=== PATIENT | female | born 1940 | race Caucasian/White ===

== ENCOUNTER 2018-08-15 09:30 | Inpatient (IN) | payer MEDICARE, BC ==
[2018-08-08 14:42] LABS: BASOPHILS % (AUTO) 0.7 % (0-1); EOSINOPHILS # (AUTO) 0.1 X10'3 (0-0.9); EOSINOPHILS % (AUTO) 0.9 % (0-6); LYMPHOCYTES # (AUTO) 1.3 X10'3 (1.1-4.8); LYMPHOCYTES % (AUTO) 22.1 % (21-51); MEAN CORPUSCULAR HEMOGLOBIN 30.6 PG (27.0-31.0); MEAN CORPUSCULAR HGB CONC 33.5 % (33.0-36.5); MEAN CORPUSCULAR VOLUME 91.2 FL (78-98); MEAN PLATELET VOLUME 7.7 FL (7.4-10.4); MONOCYTES # (AUTO) 0.5 X10'3 (0-0.9); MONOCYTES % (AUTO) 8.1 % (2-12); NEUTROPHILS % (AUTO) 68.2 % (42-75); PRE OP HEMATOCRIT 35.8 % (35.0-45.0); PRE OP PLATELET COUNT 222 X10'3 (140-440); RED BLOOD COUNT 3.92 X10'6 (4.20-5.60); RED CELL DISTRIBUTION WIDTH 14.1 % (11.5-14.5)
[2018-08-08 15:01] LABS: ALBUMIN 3.5 G/DL (3.4-5.0); ALKALINE PHOSPHATASE 84 IU/L (46-116); BLOOD UREA NITROGEN 15 MG/DL (7-18); BUN/CREATININE RATIO 16.9 (6.6-38.0); CALCIUM 9.1 MG/DL (8.5-10.1); CHLORIDE 103 MMOL/L (99-107); CREATININE 0.89 MG/DL (0.40-0.90); PRE OP ALT 32 U/L (30-65); PRE OP ANION GAP 5 (8-16); PRE OP AST 14 U/L (10-37); PRE OP BILIRUB, TOTAL 0.3 MG/DL (0.0-1.0); PRE OP GLUCOSE 102 MG/DL (70-104); PRE OP POTASSIUM 3.5 MMOL/L (3.4-5.1); PRE OP SODIUM 138 MMOL/L (135-145); TOTAL CARBON DIOXIDE 30.4 MMOL/L (24-32); TOTAL PROTEIN 6.9 G/DL (6.4-8.2); eGFR 61 ML/MIN
[~2018-08-15] VITALS: Ht 157.5 cm; Wt 66.4 kg
[2018-08-15] VITALS (20 sets, daily range): BP systolic 108–146; BP diastolic 69–94
[~2018-08-15 09:30] MED LIST: ALEN70TA13 PO; ANAS1TAB PO; CHOL400T14 PO; Cefazolin 2GM/50ML dext iso,osmotic IVPB IV ONE; LOSA100T15 PO; MAGN500C16 PO; OMEP40CA37 PO; OSC500T PO; VANCOMYCIN INJ 1000 MG in NORMAL SALINE 250ml IV.SOLN IV ONE; famotidine 20mg tablet PO ONE; ringers solution, lacted 1,000 ML IV SCH
[2018-08-15] MEDS ORDERED: LIDOcaine 1% (10mg/ml) 2ml vial ONE ×2 (10:51→12:45)
[2018-08-15] MEDS ORDERED: ROPIVAcaine 0.5% (5mg/ml) 30ml vial ONE ×3 (12:05→12:42)
[2018-08-15] MEDS ORDERED: vancomycin 1,000mg inj ONE (12:07)
[2018-08-15] MEDS ORDERED: sevoflurane 250ml liquid IH ONE (12:35)
[2018-08-15] MEDS ORDERED: fentaNYL/PF 50MCG/1 ML 2ML syringe ONE (12:36)
[2018-08-15] MEDS ORDERED: propofol inj 20 ML IV ONE (12:36)
[2018-08-15] MEDS ORDERED: LIDOcaine 2% (20mg/ml) 5ml vial ONE (12:36)
[2018-08-15] MEDS ORDERED: midazolam 2 mg/2 ml injection ONE (12:37)
[2018-08-15] MEDS ORDERED: cloNIDine hcl/PF 100mcg/ml inj ONE (12:42)
[2018-08-15] MEDS ORDERED: ketorolac trometh. 30mg/ml inj. ONE (12:43)
[2018-08-15] MEDS ORDERED: NORMAL SALINE IV ONE ×5 (13:00→18:00)
[2018-08-15] MEDS ORDERED: TRANEXAMIC ACID IV ONE ×5 (13:00→18:00)
[2018-08-15] MEDS ORDERED: phenylephrine 10mg/ml inj. ONE (13:23)
[2018-08-15] MEDS ORDERED: ringers solution, lacted 1,000 ML IV SCH (14:06)
[2018-08-15] MEDS ORDERED: enalaprilat dihydrate 2.5mg/2ml vial IV PRN (14:10)
[2018-08-15] MEDS ORDERED: ondansetron/PF 4mg/2ml inj IV PRN ×2 (14:10→15:15)
[2018-08-15] MEDS ORDERED: fentaNYL/PF 50MCG/1 ML 2ML syringe IV PRN ×2 (14:10)
[2018-08-15] MEDS ORDERED: morphine 4 MG/ML inj SYRINge IV PRN ×2 (14:10)
[2018-08-15] MEDS ORDERED: hydrALAZINE 20mg/ml inj. IV PRN (14:10)
[2018-08-15] MEDS ORDERED: bisacodyl 10mg suppository rectal RC PRN (15:15)
[2018-08-15] MEDS ORDERED: HYDROmorphone 1 mg/ml syringe IV PRN ×2 (15:15)
[2018-08-15] MEDS ORDERED: diphenhydrAMINE 25mg capsule PO PRN ×2 (15:15)
[2018-08-15] MEDS ORDERED: acetaminophen 325mg tablet PO PRN (15:15)
[2018-08-15] MEDS ORDERED: oxyCODONE IR 5mg (immed. release) tablet PO PRN ×2 (15:15)
[2018-08-15] MEDS ORDERED: non-formulary drug (Alendronate Sodium 70 MG) PO SCH (15:15)
[2018-08-15] MEDS ORDERED: magnesium hydroxide 30ml (MOM) UD suspension PO PRN (15:15)
[2018-08-15] MEDS ORDERED: proCHLORperazine 10 MG/2 ml inj IV ONE (15:45)
[2018-08-15] MEDS: ceFAZolin 1GM/D5W- ADD-VANTAGE 50 ML IV SCH ×2 (18:44→23:22)
[2018-08-15] MEDS ORDERED: vancomycin/NS 1 GM ADD-VANTAGE 250 ML IV SCH (20:00)
[2018-08-15] MEDS: ketorolac tromethamine 15mg/ml inj. IV SCH ×2 (20:44→23:22)
[2018-08-15] MEDS: gabapentin 300mg capsule PO SCH (20:45)
[2018-08-15] MEDS: acetaminophen 325mg tablet PO SCH (20:46)
[2018-08-15] MEDS ORDERED: losartan 50mg tablet PO SCH (21:00)
[2018-08-15] MEDS ORDERED: sennosides 8.6mg tablet PO SCH (21:00)
[2018-08-15] MEDS ORDERED: calcium carbonate 500mg tablet PO SCH (21:00)
[2018-08-15] MEDS ORDERED: magnesium oxide 400mg tablet PO SCH (21:00)
[2018-08-15] MEDS ORDERED: anastrozole 1 MG tablet PO SCH (21:00)
[2018-08-15] MEDS ORDERED: cholecalciferol (vitamin D) 400 unit tablet PO SCH (21:00)
[2018-08-15] MEDS: potassium cl 20mEq in 1/2 NS 1,000 ML IV SCH ×2 (21:03→23:15)
[2018-08-16 01:58] VITALS: BP 100/52
[2018-08-16] MEDS: acetaminophen 325mg tablet PO SCH ×2 (02:00→09:01)
[2018-08-16 05:56] LABS: BASOPHILS % (AUTO) 0 % (0-1); EOSINOPHILS % (AUTO) 0.7 % (0-6); HEMATOCRIT 31.9 % (35.0-45.0); HEMOGLOBIN 10.8 g/dl (12.0-16.0); LYMPHOCYTES # (AUTO) 0.7 X10'3 (1.1-4.8); LYMPHOCYTES % (AUTO) 10.3 % (21-51); MEAN CORPUSCULAR HEMOGLOBIN 30.7 PG (27.0-31.0); MEAN CORPUSCULAR HGB CONC 33.9 % (33.0-36.5); MEAN CORPUSCULAR VOLUME 90.4 FL (78-98); MEAN PLATELET VOLUME 7.8 FL (7.4-10.4); MONOCYTES # (AUTO) 0.3 X10'3 (0-0.9); MONOCYTES % (AUTO) 4.6 % (2-12); NEUTROPHILS # (AUTO) 5.4 X10'3 (1.8-7.7); NEUTROPHILS % (AUTO) 84.4 % (42-75); PLATELET COUNT 185 X10'3 (140-440); RED BLOOD COUNT 3.52 X10'6 (4.20-5.60); WHITE BLOOD COUNT 6.4 X10'3 (4.5-11.0)
[2018-08-16 06:00] VITALS: BP 121/58
[2018-08-16 06:15] LABS: ANION GAP 9 (8-16); CHLORIDE 103 MMOL/L (99-107); POTASSIUM 3.9 MMOL/L (3.5-5.1); SODIUM 136 MMOL/L (135-145); TOTAL CARBON DIOXIDE 24.2 MMOL/L (24-32)
[2018-08-16] MEDS ORDERED: ASPI-1 PO (07:00)
[2018-08-16] MEDS: potassium cl 20mEq in 1/2 NS 1,000 ML IV SCH (07:15)
[2018-08-16] MEDS ORDERED: pantoprazole 40mg Tablet.DR PO SCH (07:30)
[2018-08-16] MEDS: ketorolac tromethamine 15mg/ml inj. IV SCH (08:00)
[2018-08-16] MEDS ORDERED: aspirin 325mg tablet PO SCH (08:30)
[2018-08-16] MEDS: gabapentin 300mg capsule PO SCH (09:01)
[2018-08-16 10:00] VITALS: BP 106/58
[2018-08-16] MEDS ORDERED: celeCOXIB 100mg capsule PO SCH (20:00)
[2018-08-17] MEDS ORDERED: acetaminophen 325mg tablet PO PRN (15:15)
== END 2018-08-16 14:45 | disposition home or self-care (01) | DRG 483 ==
LOC: PAS IN 09:57 → EDSTATUS 10:30 → ORTHO 4S 17:00
PROVIDERS: ADMIT Orthopaedic Surgery; ATTEND Orthopaedic Surgery
PROC: 0LS40ZZ Reposition Left Upper Arm Tendon, Open Approach (ICD-10-PCS; 2018-08-15)
PROC: 3E0T3BZ Introduction of Anesthetic Agent into Peripheral Nerves and Plexi, Percutaneous Approach (ICD-10-PCS; 2018-08-15)
PROC: 0RRK00Z Replacement of Left Shoulder Joint with Reverse Ball and Socket Synthetic Substitute, Open Approach (ICD-10-PCS; principal; 2018-08-15 13:06)
DX: M19.012 Primary osteoarthritis, left shoulder (principal); D62 Acute posthemorrhagic anemia; M75.02 Adhesive capsulitis of left shoulder; I10 Essential (primary) hypertension; M75.22 Bicipital tendinitis, left shoulder; M75.42 Impingement syndrome of left shoulder; M25.712 Osteophyte, left shoulder; K21.9 Gastro-esophageal reflux disease without esophagitis; M75.122 Complete rotator cuff tear or rupture of left shoulder, not specified as traumatic; M81.0 Age-related osteoporosis without current pathological fracture; Z85.3 Personal history of malignant neoplasm of breast; Z79.82 Long term (current) use of aspirin; Z79.899 Other long term (current) drug therapy
CPT/HCPCS: 36415; 80051; 80053; 85025; 87070; 88305; 97110; 97116; 97161; A4565; A6449; A7000; J0690; J0735; J0780; J1885; J2001; J2250; J2370; J2704; J2795; J3010; J3370; J3490; J7030; J7040; J7120

== ENCOUNTER 2023-01-26 11:25 | Emergency (ER) | payer MEDICARE, BC ==
[~2023-01-26] VITALS: Ht 157.5 cm; Wt 67.3 kg
[~2023-01-26 11:25] MED LIST changes: -ALEN70TA13 PO; +ALEN70TA80 PO; +ASPI-1 PO; -Cefazolin 2GM/50ML dext iso,osmotic IVPB IV ONE; -LOSA100T15 PO; +LOSA100T57 PO; -MAGN500C16 PO; +MAGN500C4 PO; +OMEP40CA21 PO; -OMEP40CA37 PO; -VANCOMYCIN INJ 1000 MG in NORMAL SALINE 250ml IV.SOLN IV ONE; -famotidine 20mg tablet PO ONE; -ringers solution, lacted 1,000 ML IV SCH
[2023-01-26 15:04] VITALS: BP 153/98
== END 2023-01-26 15:05 | disposition home or self-care (01) ==
LOC: ER 11:26
DX: S86.812A Strain of other muscle(s) and tendon(s) at lower leg level, left leg, initial encounter (principal); Z98.890 Other specified postprocedural states; Z79.82 Long term (current) use of aspirin; Z79.899 Other long term (current) drug therapy; X58.XXXA Exposure to other specified factors, initial encounter; Y93.89 Activity, other specified; Y92.89 Other specified places as the place of occurrence of the external cause; Y99.8 Other external cause status
CPT/HCPCS: 93971; 99284

== ENCOUNTER 2025-04-15 10:47 | Emergency (ER) | payer MEDICARE, BC ==
[~2025-04-15] VITALS: Ht 157.5 cm; Wt 70.4 kg
[~2025-04-15 10:47] MED LIST changes: -LOSA100T57 PO; +LOSA100T58 PO
[2025-04-15 10:48] VITALS: TEMP 97.7
[2025-04-15] MEDS: oxyCODONE IR 5mg (immed. release) tablet PO ONE (11:07)
[2025-04-15] MEDS: fentaNYL/PF 50MCG/1 ML 2ML syringe IV ONE (11:28)
--- NOTE | 2025-04-15 12:01 | RADIOLOGY REPORT ---
DI HUMERUS (2VWS), INDICATION: fall with deformity TECHNICAL DATA: Frontal and lateral views were obtained of the left humerus. COMPARISON: None FINDINGS: There is a reverse shoulder prosthesis. There is acute spiral periprosthetic fracture at the level o f the humeral stem. Glenoid and humeral component remain aligned. Left axillary clips noted. Distal c lavicular fracture. IMPRESSION: 1. Acute periprosthetic mid shaft humeral fracture. 2. Age-indeterminate distal clavicular fracture.
[2025-04-15 13:13] VITALS: BP 150/77; PULSE 90; O2SAT 95
--- NOTE | 2025-04-15 14:30 | Physician Documentation ---
History of Present Illness ~ Chief Complaint: Mechanical Fall Stated Complaint: FALL Time Seen by MD: 10:53 Mode of Arrival: EMS HPI This is a very pleasant 84-year-old female presents for evaluation of potential injuries sustained mechanical ground level fall. She had fallen onto her left upper extremity and reports an immediate onset of sharp nonradiating pain and deformity in the left upper extremity. Worse with any range of motion. Palliated with the position of comfort. Pain is moderate to severe in its intensity. Also had fallen in the right knee. Denies head strike, denies loss of consciousness, denies blood thinners. Tetanus within 5 Years?: No Medication Reconciliation Allergies: Coded Allergies: No Known Allergies (Unverified , 07/16/16) Scheduled Alendronate Sodium (Alendronate Sodium), 70 MG PO TUESDAY, (Reported) Anastrozole (Anastrozole), 1 MG PO QPM, (Reported) Aspirin (Aspirin), 325 MG PO Q24H@0830 Calcium Carbonate* (Oscal*), 1 TAB PO QPM, (Reported) Cholecalciferol (Vitamin D3), 0.5 TAB PO QPM, (Reported) Losartan Potassium (Losartan Potassium), 100 MG PO QPM, (Reported) Magnesium Oxide (Magnesium), 1 CAP PO QPM, (Reported) Omeprazole (Prilosec), 40 MG PO QPM, (Reported) Past Medical History Past Medical History: *CANCER* Past Surgical History: other Smoking Status: Never smoker Drug Use: none Lives with: Family Lives In: Home Occupation: retired Review of Systems ROS 10 point review of systems was performed and unless noted above in HPI is negative for acute process/complaint. Physical Exam Vital Signs: Temperature: 97.7, Source: Oral, Heart Rate: 90, Respiratory Rate: 15, BP: 150/77, Pulse Oximetry: 95, Weight: 70.400 Physical Exam GENERAL: Awake, alert, oriented, GCS 15, no apparent distress, non-toxic appearing, answers questions, follows commands appropriately. HEENT: Atraumatic, normocephalic, pupils equal, extraocular muscles intact, sclerae anicteric, mucus membranes moist, oropharynx is clear, no stridor. NECK: supple, full active range of motion, trachea midline, no thyromegaly, no lymphadenopathy, no JVD. CARDIOVASCULAR: regular rate/rhythm, no murmurs/gallops/rubs, Pulses are 2+ in all extremities and symmetric. Capillary refill less than 2 seconds. PULMONARY: Nonlabored, good air movement ,no respiratory distress, speaking in full sentences, clear to auscultation bilaterally, no wheezing, no ronchi, no rales, no accessory muscle use. GASTROINTESTINAL: Soft, non-tender, non-distended, normal active bowel sounds, no organomegaly, no pulsatile masses, no CVA tenderness. NEUROLOGIC: Lucid with normal mental status. Normal facial symmetry. Moves all extremities symmetrically and with purpose. No truncal ataxia. Speech is fluid without evidence of dysarthria or aphasia, no focal deficits appreciated. MUSCULOSKELETAL: There is full range of motion of all extremities. There is no joint pain or joint swelling or joint erythema. There is no muscle pain or tenderness or swelling. EXTREMITIES: warm, well-perfused, no cyanosis, no clubbing, no edema, no acute deformities. Skin: warm, dry, no rashes or lesions, no jaundice, no petechiae orpurpura. No ecchymosis. PSYCHIATRIC: Normal affect, normal insight, normal concentration. Focused exam: Allergy and got more the left upper extremity concerning for humerus fracture. Neurovascularly intact distally. Cap refill less than 2 seconds. Range of motion limited by pain and not tested. Progress Results/Orders Results/Orders Orders - ARIAN BHATT DO Humerus (2vws) (04/15/25 11:47) Md Tanvir Aguilar (04/15/25 ) Completed Orders - ARIAN BHATT DO Humerus (2vws) (04/15/25 11:47) Oxycodone Immed Release Tablet (Oxy Ir T (04/15/25 10:55) Fentanyl/Pf (Fentanyl 0.05 Mg/Ml Syringe (04/15/25 11:05) Medications Received in ER Medications (Trade) Dose Ordered Sig/Patience Route PRN Reason Start Time Stop Time Status Last Admin Dose Admin (OXY IR tablet) 5 mg ONCE ONCE PO 04/15/25 10:55 04/15/25 10:56 DC 04/15/25 11:07 5 MG (fentaNYL 0.05 MG/ML syringe) 50 mcg ONCE ONCE IV 04/15/25 11:05 04/15/25 11:06 DC 04/15/25 11:28 50 MCG Vital Signs 04/15/25 04/15/25 04/15/25 04/15/25 10:48 10:58 10:59 11:07 Temp 97.7 Pulse 90 87 Resp 15 15 15 15 B/P (MAP) 175/96 173/110 (131) Pulse Ox 98 99 04/15/25 04/15/25 04/15/25 11:28 12:15 13:13 Pulse 76 90 Resp 15 15 15 B/P (MAP) 166/81 (109) 150/77 (101) Pulse Ox 99 95 Medical Decision Making Findings Facility Status: ED Holds, RME process The plan was discussed with the patient, who demonstrates clear understanding of the plan and is in agreement with the plan unless otherwise noted in the chart. All questions have been answered, all concerns were addressed unless otherwise documented. I was available throughout their ED stay for frequent reassessment and questions. Differential Diagnoses (considered and possible or likely): [Ground level fall, acute traumatic pain, left humeral fracture, dislocation, contusion, right knee fracture versus dislocation versus contusion] ??Differential Diagnoses (considered and unlikely, not requiring evaluation currently): [] No evidence of neurovascular injury MDM Data Please see HPI for the following: Independent Historians and external Records Review. Historian: [Patient] Independent Historians: ?[EMS] Medication Management: [Reviewed medication list] Social History and determinants: [Reviewed] Please see the body of the note for the following: Any independent interpretations of ECG, imaging studies. All vitals signs/haemodynamics, ordered tests were independently reviewed and interpreted by myself. Nursing triage complaint and vitals reviewed, additional nursing notes were reviewed as available and I agree unless otherwise noted or documented in contradiction in the chart Vital Signs: Independently reviewed Labs: Independently interpreted Imaging: Independently interpreted Old Medical Records: Independently reviewed, see HPI for relevant summary and information Pulse Oximetry: [100%] interpreted as [normal on room air] by me Additionally notably showing: [Hemodynamically stable. X-ray shows periprost hetic fracture.] Tests considered but not ordered include: [Hematologic workup has been considered but does not appear to be necessary given mechanical nature of the injury.] Social Determinants of Health Impact: Patient was evaluated in [facility] [place] due to below par ratio of patient to medical providers. [] Comorbid Conditions Impacting Present Evaluation and Care/Treatment: [] Management Discussions with other Healthcare Providers: [Dr. Madera, orthopedic surgeon who recommends outpatient follow-up with her operating surgeon] Treatment and Disposition Medication Management (Given or considered): [Pain management]. See EMR for details Consideration for Hospitalization/Escalation/Deescalation of Care: Admission for observation has been considered, [however the patient is able to tolerate p.o., their symptoms are controlled, they are able to rely on oral medications, and their chief complaint/diagnosis can be managed on outpatient basis.] ?ED Course:?[] ?Shared decision making:?[No clinical deterioration] Patient is hemodynamically stable for discharge home with follow with their primary care provider. [ ] Specific and cautious return precautions provided and discussed with full understanding. Any incidental findings were also discussed and follow up recommendations given. [] All questions answered. Patient/family were able to verbalize back return precautions. Patient/family agree to plan. Copies of imaging and laboratory studies were provided. Code status:?FULL Please see the full Electronic Medical Record for full details of nursing documentation, medications list, other records of complete past medical history and conditions, vital signs, laboratory studies, and any radiologic study interpretations by radiologists. Portions of this note were completed using [employer] dictation software and as a result there may exist minor errors in spelling. I have reviewed elements of past family and social history and agree as included in note. Departure Disposition: 01 HOME / SELF CARE / HOMELESS Impression: Primary Impression: Closed left humeral fracture Condition: Improved Discharge Instructions: Humerus Fracture Treated With Immobilization Additional Instructions: Follow-up with the orthopedic surgeon of your choice, you may follow-up with the surgeon that did your prosthesis, alternatively you can follow-up with Dr. Madera, orthopedic surgeon on-call today Referrals: NO PRIMARY CARE PROVIDER (PCP) Prescriptions ONDANSETRON ODT 4mg tablet (ONDANSETRON ODT) 4 Mg Tab.rapdis 1 TAB PO Q6H PRN PRN for nausea/vomiting for 4 Days, #16 TAB 0 Refills Prov: ARIAN BHATT DO 04/15/25 Oxycodone HCl/Acetaminophen (Percocet 5-325 mg Tablet) 5 Mg-325 Mg Tablet 1 TAB PO QID PRN PRN for pain for 5 Days, #20 TAB 0 Refills Prov: ARIAN BHATT DO 04/15/25 Education Educated: Patient Educated regarding: diagnosis, treatment, prognosis, need for follow up Signature Scribe Signature: No scribe Attestation: This note accurately reflects clinical decisions, work performed by myself, DO NOVA Roche NICHOLAS M DO April 15, 2025 14:30
[2025-04-15] MEDS ORDERED: OXYC-145 PO (14:33)
[2025-04-15] MEDS ORDERED: ONDA-243 PO (14:33)
[2025-04-15 15:08] VITALS: RESP 16
[2025-04-15] MEDS: oxyCODONE/APAP 5-325mg tablet PO ONE (15:08)
== END 2025-04-15 16:13 | disposition home or self-care (01) ==
LOC: ER 10:47
DX: S42.302A Unspecified fracture of shaft of humerus, left arm, initial encounter for closed fracture (principal); Z79.82 Long term (current) use of aspirin; W19.XXXA Unspecified fall, initial encounter; Y93.89 Activity, other specified; Y92.89 Other specified places as the place of occurrence of the external cause; Y99.8 Other external cause status
CPT/HCPCS: 73060; 96374; 99283; A4565; J3010

== ENCOUNTER 2025-05-12 00:19 | Emergency (ER) | payer MEDICARE, BC ==
[~2025-05-12] VITALS: Ht 157.5 cm; Wt 76.0 kg
[~2025-05-12 00:19] MED LIST changes: +ONDA-243 PO; +OXYC-145 PO
[2025-05-12 00:23] VITALS: TEMP 97.4
--- NOTE | 2025-05-12 01:25 | Physician Documentation ---
History of Present Illness ~ Chief Complaint: Extremity Swelling Stated Complaint: SWOLLEN FOOT POST ОЛЕГ Time Seen by MD: 01:15 OK to notify your PCP?: Yes Source: patient, family Mode of Arrival: POV Exam Limitations: no limitations HPI Chief Complaint: Left lower extremity swelling Caveat: None Independent Historians: Daughter History of Present Illness: Patient is a 84-year-old woman that had recent open reduction internal fixation of her left humerus after a recent fall and recurrent fracture. This evening the patient noticed after taking off her socks that she had a swelling of the left foot and calf. Patient denies any pain in the foot or calf. No fever. No redness to the leg. Patient denies any other associated symptoms. No chest pain or shortness for breath. No alleviating or exacerbating factors. Review of systems: All systems were reviewed and are negative except for what is indicated in the history of present illness. Past Medical History: Mild hypertension, breast cancer Past Surgical History: Left shoulder prosthesis 2018, bilateral mastectomy Social History: No tobacco use, no alcohol use, no drug use Medications: Reviewed as documented Nursing Notes Allergies: Reviewed as documented in Nursing Notes Mynor allan 5 years: No Medication Reconciliation Allergies: Coded Allergies: No Known Allergies (Unverified , 07/16/16) Scheduled Alendronate Sodium (Alendronate Sodium), 70 MG PO TUESDAY, (Reported) Anastrozole (Anastrozole), 1 MG PO QPM, (Reported) Aspirin (Aspirin), 325 MG PO Q24H@0830 Calcium Carbonate* (Oscal*), 1 TAB PO QPM, (Reported) Cholecalciferol (Vitamin D3), 0.5 TAB PO QPM, (Reported) Losartan Potassium (Losartan Potassium), 100 MG PO QPM, (Reported) Magnesium Oxide (Magnesium), 1 CAP PO QPM, (Reported) Omeprazole (Prilosec), 40 MG PO QPM, (Reported) Scheduled PRN ONDANSETRON ODT 4mg tablet (Ondansetron Odt), 1 TAB PO Q6H PRN PRN for nausea/vomiting Oxycodone HCl/Acetaminophen (Percocet 5-325 mg Tablet), 1 TAB PO QID PRN PRN for pain Past Medical History Past Medical History: *CANCER* Past Surgical History: other Drug Use: none Lives with: Family Lives In: Home Occupation: retired Review of Systems All Other Systems at this time: Reviewed and Negative ROS Patient denies any other acute symptoms other than above. All other systems are negative Physical Exam Vital Signs: RN Vital Signs have been reviewed: Yes, Temperature: 97.4, Source: Temporal, Heart Rate: 93, Respiratory Rate: 20, BP: 166/94, Pulse Oximetry: 98, Weight: 76.050 Oxygen Flow Rate: 0 Pulse Oximetry Reflects: adequate oxygenation Physical Exam General Appearance: No distress HEENT: Normal OP, moist oral mucosa, PERRL, EOMI Neck: supple, normal ROM, trachea midline Pulmonary: No respiratory distress, CTA, BS equal Cardiac: RRR, no murmur, rub or gallop, GI: nondistended, soft, nontender, normal bowel sounds, no guarding, no rebound Extremities: Left upper extremity is in a sling in his diffusely swollen, surgical bandage over the left lateral arm. 2+ pitting lower extremity edema in the foot some mild nonpitting edema in the left leg compared to the right. No calf tenderness bilaterally, 2+ DP pulses bilaterally, trace lower extremity edema in the right foot. Skin: intact, dry, warm, no rashes Neuro: AAOx3, speech is clear, no focal motor weakness Psych: normal affect, good eye contact, no apparent hallucination, normal speech Progress Results/Orders Results/Orders Orders - RENEA JOSEPH MD Cbc/Diff (05/12/25 01:19) CMP (05/12/25 01:19) Vl Venous (05/12/25 01:19) Completed Orders - RENEA JOSEPH MD Vl Venous (05/12/25 01:19) Vital Signs 05/12/25 05/12/25 00:23 02:52 Temp 97.4 Pulse 93 Resp 20 16 B/P (MAP) 166/94 Pulse Ox 98 O2 Flow Rate 0 Medical Decision Making Findings Differential diagnosis includes but is not limited to: DVT, lower extremity edema, hepatic failure, renal failure Left lower extremity Doppler, indication: Left lower extremity swelling post surgery Impression: Preliminary report no evidence of DVT Laboratory data independent interpretation: PATIENT IS REFUSING BLOOD WORK. CBC: CMP: Emergency department course/medical decision-making: Patient has what appears to be peripheral edema. There was no vascular Doppler evidence for DVT. Patient is refusing blood work. However I do not suspect acute renal or hepatic failure. No evidence for infection. Patient is instructed to elevate her legs as much as possible and to follow up with her primary care doctor or manager of application development if the swelling persists. Test results and treatment plan reviewed with the patient and family. Patient is stable for discharge. Departure Time of Disposition: 02:56 Disposition: 01 HOME / SELF CARE / HOMELESS Impression: Primary Impression: Edema of lower extremity Condition: Stable Discharge Instructions: Peripheral Edema Additional Instructions: FOLLOW UP WITH YOUR PRIMARY CARE DOCTOR THIS WEEK IF SWELLING PERSISTS. ELEVATE YOUR LEGS MUCH POSSIBLE. IF EDEMA/SWELLING PERSIST SHE MAY NEED TO BE STARTED ON A DIURETIC. Education Educated: Patient Educated regarding: diagnosis, treatment, need for follow up Signature Scribe Signature: No scribe Attestation: No scribe RENEA JOSEPH MD May 12, 2025 01:25
[2025-05-12 03:05] VITALS: BP 160/89; PULSE 90; RESP 18; O2SAT 99
--- NOTE | 2025-05-12 03:07 | VASCULAR REPORT ---
Left lower extremity venous duplex Clinical History: Left lower extremity swelling Comparison: None Technique: Duplex Doppler evaluation of the deep venous system of the left lower extremity from the common femor al vein to the popliteal vein including color Doppler and spectral/pulsed waveform analysis was perfo rmed. Findings: The common femoral vein demonstrates appropriate compressibility and waveform variability. There is compressibility/patency of the great saphenous vein at the proximal thigh. The femoral vein demonstrates appropriate compressibility and waveform variability. The deep femoral vein demonstrates appropriate compressibility and waveform variability. The popliteal vein demonstrates appropriate compressibility and waveform variability. There is normal compressibility at the tibioperoneal trunk. Impression: 1. No left femoropopliteal venous thrombosis. 2. Contralateral common femoral vein is patent.
== END 2025-05-12 03:07 | disposition home or self-care (01) ==
LOC: ER 00:20
DX: R60.0 Localized edema (principal); I10 Essential (primary) hypertension; Z85.3 Personal history of malignant neoplasm of breast; Z79.82 Long term (current) use of aspirin
CPT/HCPCS: 93971; 99284